=== PATIENT | male | born 1975 | race Caucasian/White ===

== ENCOUNTER → 2017-03-29 | Outpatient (CLI) | payer OTHER ==
--- NOTE | 2017-03-29 11:00 | XR ---
EXAMINATION TYPE: XR cervical spine comp DATE OF EXAM: 03/29/2017 COMPARISON: NONE HISTORY: Arm numbness TECHNIQUE: Four views are submitted. FINDINGS: The odontoid is intact. There are no compression deformities. The prevertebral soft tissue structur es are within normal limits. There is moderate degenerative disc disease at C5-6 and C6-C7 with anter ior hypertrophic spur formation and posterior spondylosis. Foraminal encroachment C6-7 bilaterally. IMPRESSION: 1. Multilevel degenerative disc disease with foraminal encroachment and the most marked findings at C 6-C7. Recommend follow-up MRI.
== END | disposition home or self-care (01) ==
LOC: RADXRYALE 08:42
PROVIDERS: ATTEND Physician Assistant Medical
DX: M50.322 Other cervical disc degeneration at C5-C6 level (principal); R51 Headache
CPT/HCPCS: 72050

== ENCOUNTER → 2017-04-21 | Outpatient (CLI) | payer OTHER ==
--- NOTE | 2017-04-21 19:09 | MR ---
EXAMINATION TYPE: MR cervical spine wo con DATE OF EXAM: 04/21/2017 COMPARISON: NONE HISTORY: Neck pain with Tingling and Numbness in both hands x2 months TECHNIQUE: Multiplanar, multisequence images of the cervical spine were acquired. C2-C3: No disc herniation or canal stenosis. No foraminal encroachment. C3-C4: Mild uncovertebral joint hypertrophy. Mild degenerative disc disease. Posterior cervical spond ylosis and mild disc bulging but no herniation or canal stenosis. C4-C5: Mild degenerative disc disease. No foraminal encroachment or canal stenosis. No disc herniatio n. C5-C6: Severe degenerative disc disease. There is a broad-based right paracentral disc herniation wit h moderate effacement of thecal sac. No spinal cord contact although there is mass effect due to the compression thecal sac. Mild right-sided foraminal encroachment. C6-C7: Severe degenerative disc disease. Broad-based central disc protrusion results in moderate effa cement of thecal sac and mild central stenosis. Mild bilateral foraminal encroachment. C7-T1: Degenerative disc disease with a small focal right paracentral disc protrusion. No canal steno sis. Mild effacement of thecal sac. Neural foramina patent. Cervical segments are intact. There is normal alignment. Cervical spinal cord is of normal signal. Craniovertebral junction relationships are within normal limits. There is abnormal signal in the po sterior nasopharynx noted. IMPRESSION: 1. Multilevel degenerative disc disease with severe changes at levels C5-C7. 2. Disc herniation paracentral to the right C5-C6 and C7-T1. At C5-C6 there is mass effect upon the t hecal sac but no spinal cord contact. 3. Broad-based central disc protrusion C6-C7 with mild central stenosis and bilateral foraminal encro achment. 4. There is a cystic-appearing mass in the posterior nasopharynx which is only partially imaged. 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 Correlate with CT soft tissue of the neck or direct visu alization.
== END | disposition home or self-care (01) ==
LOC: RADMRIMAIN 17:25
PROVIDERS: ATTEND Family Medicine
DX: M48.02 Spinal stenosis, cervical region (principal); M50.222 Other cervical disc displacement at C5-C6 level; M50.322 Other cervical disc degeneration at C5-C6 level
CPT/HCPCS: 72141

== ENCOUNTER → 2017-05-05 | Outpatient (CLI) | payer OTHER ==
--- NOTE | 2017-05-05 10:54 | CT ---
EXAMINATION TYPE: CT soft tissue neck w con DATE OF EXAM: 05/05/2017 COMPARISON: NONE HISTORY: Patient has no complaints at time of service. Follow up to abnormal MRI at [facility]. CT DLP: 623 mGycm CONTRAST: Patient injected with 100 mL of Omnipaque 300. TECHNIQUE: Axial images at 3 mm thick sections. Reconstructed images in the coronal plane and sagitt al plane are reviewed. FINDINGS: Limited CT sections are obtained the lung apices. The lung apices appear clear. CT neck: The torus tubarius and fossa of Rosenmuller are normal. No suspicious cyst is evident. Talat oid may be somewhat prominent. 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 Radio Frequency Technician spac es are normal. There is asymmetry of the tonsillar pillars with fullness on the left compared to the right. Discrete underlying mass is not identified. Direct visualization is recommended. Parapharyngeal spaces appear normal. Jugulodigastric and carotid sheath regions appear within normal limits. No suspicious adenopathy is evident. There is some mild mucosal thickening within posterior right ethmoid air cells. Small retention cyst A be within the left and right maxillary sinus medial sanchez in the anterior left maxillary sinus wal l. Remaining paranasal sinuses and mastoid air cells are clear. Parotid glands appear normal and symmetrical. Submandibular glands, are normal. No suspicious adeno damien is evident. Vocal cord level appear symmetrical. Isthmus is thickened 1.8 x 1.4 cm hypodensity. Consider additional evaluation with ultrasound. Some degenerative disc changes are within the cervical spine further delineated on the MRI of the cer vical spine the 04/21/2017 IMPRESSIONS: 1. Fullness in the region of the adenoid. Underlying Tornwaldt cyst is not excluded. Findings corresp ond to the MRI findings. 2. There is some fullness and asymmetry of the left tonsillar pillar compared to the right. Direct vi sualization is recommended. Underlying mass is not identified on CT examination. 3. Hypodense lesion within the isthmus. Additional evaluation with ultrasound is recommended.
== END | disposition home or self-care (01) ==
LOC: RADCTMAIN 09:06
PROVIDERS: ATTEND Family Medicine
DX: J39.2 Other diseases of pharynx (principal); R22.1 Localized swelling, mass and lump, neck
CPT/HCPCS: 70491; Q9967

== ENCOUNTER → 2020-04-24 | Outpatient (CLI) | payer BC ==
--- NOTE | 2020-04-24 13:01 | CONS ---
CONSULTATION DATE OF SERVICE: 04/24/2020. This 44-year-old gentleman has been evaluated in the sleep center for possible obstructive sleep apnea-hypopnea syndrome. HISTORY OF PRESENT ILLNESS/SLEEP-WAKE EVALUATION: Patient's usual sleep schedule from around p.m. to 5 a.m. working days and to 6 a.m. on weekends. Sometimes he has problems with falling asleep, although no TV in bedroom. He sleeps in different positions including backside stomach and even chair. He wakes up from sleep 3 times with 2 episodes of nocturia. According to his , he has loud snoring and witnessed episodes of stopped breathing during the sleep. He is also grinding teeth. He has awakenings also with gasping for air. During the day, patient has difficulties to pay attention, problems with concentration, irritability, anxiety. [place] Sleepiness Scale is 4. PAST MEDICAL HISTORY: Positive for thyroid nodules, back problems and knee problems. PAST SURGICAL HISTORY: Bilateral arthroscopic knee surgery for meniscus problems. SOCIAL HISTORY: Positive for smoking 2-3 cigarettes a day for 10 years, quit about 6 years ago. Alcohol consumption occasional. FAMILY HISTORY: Aortic aneurysm by his mother, snoring, thyroid problems. REVIEW OF SYSTEMS: Awakenings from sleep with nocturia, loud snoring, witnessed episodes of stopped breathing. PHYSICAL EXAM: GENERAL: gentleman without distress. VITAL SIGNS: BP 138/89, HR 78, RR 15, height 6 feet zero inches, weight 257, BMI 34.8, temperature 97.8, oxygen saturation at room air 96%. HEENT: PERRLA, EOMI. Oropharynx extremely low position of soft palate, Mallampati IV, wide neck is 17 inches in circumference. LUNGS: Clear to percussion and to auscultation. Good air exchange. No wheezing or rhonchi. HEART: S1, S2 regular. No murmurs, gallops, or rubs. ABDOMEN: Soft and nontender. Bowel sounds are present. No organomegaly appreciated. EXTREMITIES: No clubbing or cyanosis. FINISH PHOTOGRAPHER: Awake, alert, and oriented X3. Cranial nerves 2 to 7 intact. There is no fasciculation or atrophy. noted. No focal deficits observed. IMPRESSION: 1. Loud snoring, witnessed episodes of stopped breathing during the sleep, extremely low position of soft palate, wide neck, obstructive sleep apnea-hypopnea syndrome. 2. Obesity. Body mass index 34.8. 3. Thyroid nodules. 4. History of back problems. 5. Status post bilateral knee surgery for meniscus problems. PLAN: 1. Home sleep apnea test for evaluation of patient's breathing during the sleep. 2. Following plan after reviewing results of sleep studies. 3. Losing weight. 4. Sleep hygiene with regular time in bed for 7-1/2 to 8 hours. 5. No driving if feeling any sleepiness. Thank you very much for referring this patient for consultation. Sincerely, Milton Marmolejo MD, PhD, FAASM Diplomat of [employer] [facility] [place] MMODL / IJN: [id number] /
== END | disposition home or self-care (01) ==
LOC: SLEEP 10:43
PROVIDERS: ATTEND Internal Medicine
DX: G47.33 Obstructive sleep apnea (adult) (pediatric) (principal); E66.9 Obesity, unspecified; E04.2 Nontoxic multinodular goiter; Z98.890 Other specified postprocedural states; Z68.34 Body mass index [BMI] 34.0-34.9, adult
CPT/HCPCS: 99211

== ENCOUNTER → 2020-08-21 | Outpatient (CLI) | payer BC ==
--- NOTE | 2020-08-21 23:14 | SFUN ---
SLEEP CENTER FOLLOW UP NOTE DATE OF SERVICE: 08/21/2020 45-year-old gentleman who has been followed in Sleep Center for treatment of obstructive sleep apnea-hypopnea syndrome. The patient had a home sleep apnea test at the end of April of 2020, which showed severe obstructive and central sleep apnea- hypopnea syndrome with total apnea-hypopnea index 33. Then, the patient underwent the titration which was done with the CPAP and actually during titration, patient did continue to have some abnormalities of respiration with oxygen desaturation and was started on treatment with CPAP in automatic regimen and today is his first visit on CPAP. The patient is using CPAP every night, except in July of 2020. He had Covid and at that time he was not able to use the machine. Since starting to use the machine, he used a full-face mask, had difficulties with that. Then he had nasal pillows, also has difficulty with that, then was switched to nasal mask and he misses his preference. He continues to use nasal mask at the present time. I checked his CPAP unit. Range of the pressure 5-15 with average pressure 11.1, usage 21 out of 30 nights for more than 4 hours. The leak is in normal range 7 L/minute. Apnea-hypopnea index for the last month, average increased to 18.9 and does include 14.3 central apneas. According to patient's , sometimes when she is checking his oxygen level at night, it is in the low range. IMPRESSION: 1. Severe obstructive and central sleep apnea-hypopnea syndrome, improved with PAP therapy but not normalized. 2. Status post Covid 19 in July 2020. 3. Back problems. 4. Thyroid nodules. 5. Status post bilateral knee surgery for meniscus problems. 6. Very minimal periodic limb movements during titration. PLAN: 1. Repeat PAP titration, possibly with a BiPAP ST mode. If necessary, oxygen supplement. 2. Losing weight. 3. Sleep hygiene with regular time in bed for 7 1/2 hours. 4. At the present time, patient should continue to use CPAP. 5. No driving if feeling sleepiness. Thank you very much for allowing me to participate in management of your patient. Sincerely, Milton Marmolejo MD, PhD, FAASM Diplomat of [employer] Academic Advising Director of [facility] [place] MMODL / IJN: [id number] /

== ENCOUNTER → 2020-09-03 | Outpatient (CLI) | payer BC ==
--- NOTE | 2020-09-03 11:36 | XR ---
EXAMINATION TYPE: XR chest 2V DATE OF EXAM: 09/03/2020 COMPARISON: NONE HISTORY: Chest pain TECHNIQUE: Frontal and lateral views of the chest are obtained. FINDINGS: There is no focal air space opacity. No evidence for pneumothorax. No pleural effusion. The cardiac silhouette size is within normal limits. The osseous structures are grossly intact. IMPRESSION: 1. No acute cardiopulmonary process.
== END | disposition home or self-care (01) ==
LOC: RADXRYALE 10:43
PROVIDERS: ATTEND Family Medicine
DX: R07.9 Chest pain, unspecified (principal)
CPT/HCPCS: 71046